=== PATIENT | female | born 2000 | race Two or more races ===

== ENCOUNTER 2021-04-29 23:44 | Emergency (ER) | payer OTHER ==
[~2021-04-29] VITALS: Ht 157.5 cm; Wt 54.5 kg
[2021-04-30 01:16] VITALS: BP 106/76
[2021-04-30 02:03] LABS: COVID AG,FIA SOURCE NASOPHARYNGEAL
== END 2021-04-30 04:00 | disposition home or self-care (01) ==
LOC: EMS 23:48
DX: Z11.1 Encounter for screening for respiratory tuberculosis (principal); Z20.822 Contact with and (suspected) exposure to COVID-19
CPT/HCPCS: 71045; 99284